=== PATIENT | male | born 1980 | race Caucasian/White ===

== ENCOUNTER 2017-07-28 10:41 | Emergency (ER) | payer OTHER ==
[~2017-07-28] VITALS: Ht 170.2 cm; Wt 85.9 kg
[~2017-07-28 10:41] MED LIST: NAPROXEN500 MG PO
[2017-07-28] MEDS ORDERED: TRAMADOL HCL50 MG PO (13:56)
[2017-07-28 14:15] VITALS: BP 120/69
== END 2017-07-28 14:15 | disposition home or self-care (01) ==
LOC: EME 10:41
DX: S61.411A Laceration without foreign body of right hand, initial encounter (principal); W27.8XXA Contact with other nonpowered hand tool, initial encounter; Y99.0 Civilian activity done for income or pay; Z23 Encounter for immunization; F17.200 Nicotine dependence, unspecified, uncomplicated
CPT/HCPCS: 73130; 99281; 99284

== ENCOUNTER 2017-08-17 11:19 | Emergency (ER) | payer OTHER ==
[~2017-08-17] VITALS: Ht 170.2 cm; Wt 83.8 kg
[~2017-08-17 11:19] MED LIST changes: +TRAMADOL HCL50 MG PO
[2017-08-17] MEDS ORDERED: BACTRIM,SEPT1 TABLET PO (13:10)
[2017-08-17] MEDS ORDERED: NORCO 5/3251 TABLET PO (13:10)
[2017-08-17 13:24] VITALS: BP 131/89
== END 2017-08-17 13:26 | disposition home or self-care (01) ==
LOC: EME 11:19
DX: L03.115 Cellulitis of right lower limb (principal); F17.200 Nicotine dependence, unspecified, uncomplicated
CPT/HCPCS: 99281; 99283